=== PATIENT | male | born 1995 ===

== ENCOUNTER 2024-11-16 21:43 | Emergency (ER) | payer SELFPAY ==
[2024-11-16 21:55] VITALS: BP 128/85; PULSE 87; RESP 18; TEMP 36.7; O2SAT 99; BMI 25.1
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
[2024-11-16 22:10] VITALS: BP 125/74; PULSE 81; RESP 18; TEMP 36.7; O2SAT 99
== END 2024-11-16 22:25 ==
LOC: ED 22:23
PROVIDERS: Emergency Provider Family Medicine
DX: F10.129 Alcohol abuse with intoxication, unspecified (principal)
CPT/HCPCS: 99282; 99283